=== PATIENT | male | born 1955 | race Caucasian/White ===

== ENCOUNTER 2016-10-05 09:38 | Day surgery (SDC) | payer OTHER ==
[~2016-10-05] VITALS: Ht 175.3 cm; Wt 97.5 kg
[~2016-10-05 09:38] MED LIST: ACCUPRIL40 MG PO; ADVIL200 M2 PO; ATENOLOL50 MG PO; CELEBREX200 MG PO; Ecotrin PO; FIBER THERAPY500 MG PO; FIBER THERAPY625 MG PO; FISH OIL 1,0001 EAC7 PO; HYDROCHLOROTHIA25 MG PO; IRON325 MG PO; MULTIPLE VITAM1 EACH PO; NASONEX17 GM NS; OMEGA 3 1,0001 EACH PO; SENOKOT S,PE1 TABLET PO; TENORMIN25 MG PO; TENORMIN50 MG PO; VITAMIN C500 M1 PO; Vicodin,Norco 5/325 PO
[2016-10-05 11:12] VITALS: BP 129/82
[2016-10-05 14:20] VITALS: BP 126/63
[2016-10-05 15:20] VITALS: BP 114/64
[2016-10-05 16:02] VITALS: BP 120/64
== END 2016-10-05 16:05 | disposition home or self-care (01) ==
LOC: SDC 09:38
DX: M20.11 Hallux valgus (acquired), right foot (principal); M25.774 Osteophyte, right foot; I10 Essential (primary) hypertension; Z86.718 Personal history of other venous thrombosis and embolism; I87.009 Postthrombotic syndrome without complications of unspecified extremity; I87.2 Venous insufficiency (chronic) (peripheral); E66.9 Obesity, unspecified; Z68.32 Body mass index [BMI] 32.0-32.9, adult; Z96.653 Presence of artificial knee joint, bilateral; Z83.3 Family history of diabetes mellitus; Z80.0 Family history of malignant neoplasm of digestive organs; Z82.49 Family history of ischemic heart disease and other diseases of the circulatory system
CPT/HCPCS: C1769; J0690; J1100; J1885; J2250; J2405; J3010; S0020

== ENCOUNTER 2017-09-12 07:53 | Day surgery (SDC) | payer OTHER ==
[~2017-09-12] VITALS: Ht 175.3 cm; Wt 97.5 kg
[~2017-09-12 07:53] MED LIST changes: +IMODIUM A-D2 M2 PO; +MAGNESIUM400 M1 PO; +MOBIC15 MG PO; +VITAMIN B-6100 MG PO; +VITAMIN B12 100MCG PO
[2017-09-12] MEDS ORDERED: FIBER500 MG PO (08:10)
[2017-09-12] MEDS ORDERED: ZYRTEC10 M2 PO (08:10)
== END 2017-09-12 09:35 | disposition home or self-care (01) ==
LOC: PAIN 07:53 → SDC 08:30 → PAIN 08:30
DX: M47.812 Spondylosis without myelopathy or radiculopathy, cervical region (principal); M50.30 Other cervical disc degeneration, unspecified cervical region; M99.81 Other biomechanical lesions of cervical region; I10 Essential (primary) hypertension; I87.8 Other specified disorders of veins; Z86.718 Personal history of other venous thrombosis and embolism; Z96.653 Presence of artificial knee joint, bilateral
CPT/HCPCS: J1030; J2250; S0020